=== PATIENT | male | born 1965 | race Caucasian/White ===

== ENCOUNTER 2017-07-09 22:32 | Emergency (ER) | payer OTHER ==
[~2017-07-09] VITALS: Ht 165.1 cm; Wt 56.7 kg
[~2017-07-09 22:32] MED LIST: BACTRIM DS TAB1 EACH PO; KEFLEX500 MG PO; NOHOMEMEDICATIONS; TRAMADOL 50 MG50 MG PO
[2017-07-09 22:44] VITALS: BP 147/97
[2017-07-09] MEDS ORDERED: BACTRIM DS TAB1 EACH PO (23:12)
[2017-07-09] MEDS ORDERED: KEFLEX500 MG PO (23:12)
== END 2017-07-09 23:00 | disposition home or self-care (01) ==
LOC: ER 22:32
DX: L02.413 Cutaneous abscess of right upper limb (principal); L03.113 Cellulitis of right upper limb; M79.672 Pain in left foot; F17.210 Nicotine dependence, cigarettes, uncomplicated